=== PATIENT | male | born 1995 ===

== ENCOUNTER 2017-08-23 07:22 | Emergency (ER) | payer OTHER ==
[2017-08-23 07:45] VITALS: BP 144/89
--- NOTE | 2017-08-23 07:53 | UC ---
Respiratory Complaint HPI - HPI Summary HPI Summary: cough x 1 weeks productive with yellow sputum + nasal congestion , pnd , sore throat, + fever, chills, body aches - History of Current Complaint Chief Complaint: UCRespiratory Stated Complaint: FEVER/BAIRD/VOMITING Time Seen by Provider: 08/23/17 07:39 Hx Obtained From: Patient Onset/Duration: Gradual Onset, Lasting Days - 7, Still Present Severity Initially: Moderate Severity Currently: Moderate Pain Intensity: 0 Character: Cough: Productive - yellow Aggravating Factors: Exertion, Deep Breaths Alleviating Factors: Nothing Associated Signs And Symptoms: Positive: Fever, Chills, URI, Nasal Congestion. Negative: Dyspnea, Pleuritic Chest Pain, Wheezing, Hemoptysis, Dizziness, Calf Pain, Calf Swelling, Edema, Sinus Discomfort - Allergies/Home Medications Allergies/Adverse Reactions: Allergies Allergy/AdvReac Type Severity Reaction Status Date / Time No Known Allergies Allergy Verified 08/23/17 07:34 Home Medications: Home Medications Ascorbic Acid/Multivit-Min [Emergen-C Vitamin C] 1 jacob PO DAILY 08/23/17 [ History Confirmed 08/23/17] Dm/Acetaminophen/Doxylamine [Vicks Nyquil Cold & Flu N] 1 liq PO QPM PRN [History Confirmed 08/23/17] PMH/Surg Hx/FS Hx/Imm Hx Previously Healthy: Yes - Surgical History Surgical History: None - Family History Known Family History: Negative: Diabetes - Social History Alcohol Use: Occasionally Substance Use Type: None Smoking Status (MU): Never Smoked Tobacco Review of Systems Constitutional: Fever, Chills, Fatigue Skin: Negative Eyes: Negative ENT: Sore Throat, Nasal Discharge Respiratory: Cough Cardiovascular: Negative Gastrointestinal: Negative Is Patient Immunocompromised?: No All Other Systems Reviewed And Are Negative: Yes Physical Exam Triage Information Reviewed: Yes Appearance: Well-Appearing, No Pain Distress, Obese Vital Signs: Initial Vital Signs Temp 100.7 F 08/23/17 07:37 Pulse 119 08/23/17 07:37 Resp 18 08/23/17 07:37 BP 144/89 08/23/17 07:37 Pulse Ox 98 08/23/17 07:37 Vital Signs Reviewed: Yes Eyes: Positive: Conjunctiva Clear ENT: Positive: Normal ENT inspection, Hearing grossly normal, Pharynx normal, Nasal drainage, TMs normal Neck exam: Normal Neck: Positive: Supple, Nontender, No Lymphadenopathy Respiratory: Positive: Chest non-tender, Lungs clear, Normal breath sounds Cardiovascular: Positive: RRR, No Murmur, Pulses Normal Abdominal Exam: Normal Skin Exam: Normal UC Diagnostic Evaluation - Laboratory O2 Sat by Pulse Oximetry: 98 Respiratory Course/Dx - Differential Dx/Diagnosis Provider Diagnoses: viral illness Discharge - Discharge Plan Condition: Stable Disposition: HOME Patient Education Materials: Viral Syndrome (ED) Forms: *School Release Referrals: Non Staff,Doctor [Primary Care Provider] - If Needed
== END 2017-08-23 07:54 | disposition home or self-care (01) ==
LOC: UCCORT 07:22
DX: B34.9 Viral infection, unspecified (principal)
CPT/HCPCS: 99201; G0463